=== PATIENT | male | born 1940 | race Caucasian/White ===

== ENCOUNTER 2020-01-12 10:50 | Emergency (ER) | payer MEDICARE, OTHER ==
[2020-01-12] MEDS ORDERED: Sodium Chloride 0.9% 10 ML Syringe FLUSH PRN (10:56)
--- NOTE | 2020-01-12 11:01 | EDM.PDOC ---
ED HPI GENERAL MEDICAL PROBLEM - General Chief Complaint: Syncope Stated Complaint: MEDICAL [facility] Time Seen by Provider: 01/12/20 11:15 Source of Information: Reports: Patient, EMS. Denies: Old Records History Limitations: Reports: Other (minimal old records) - History of Present Illness INITIAL COMMENTS - FREE TEXT/NARRATIVE: 79 yo male presents via EMS for weakness. EMS reported syncope, but Ken denies this. He says he got up about 6 am today and had to go to the bathroom and en route his legs could not support him and he went to the ground without injury. The states that she did not see him unconscious at any point. Eventually EMS was called due to not being able to get him up off the floor. Lives with his in [place] for the past ~10 yrs. Gets his healthcare usually in [facility]. Has chronic back pain that has been worked up and nothing has been done that helps this problem. Has urinary urgency. Denies any recent new pain or illness. Has been eating OK and denies dark urine or black/bloody stool. Onset: Gradual Duration: Chronic, Getting Worse Location: Reports: Lower Extremity, Left, Lower Extremity, Right Quality: Reports: Ache Severity: Moderate (chronic low back pain) Improves with: Reports: Rest Worsens with: Reports: Movement Context: Reports: Other (See HPI) Associated Symptoms: Reports: Weakness (of both legs chronic, worse than usual today.) Treatments [facility]ENHOUSE [facility]: Reports: Other (see below) (none) - Related Data Allergies Allergy/AdvReac Type Severity Reaction Status Date / Time No Known Allergies Allergy Verified 01/12/20 10:53 Home Meds: Home Meds Blood Sugar Diagnostic [[place] CCCtouch Ultra Test Strips] 1 strip ASDIRECTED 09/11/16 [History] Cyanocobalamin (Vitamin B-12) [Vitamin B-12] 1 tab PO DAILY 09/11/16 [History] Ibuprofen 800 mg PO Q6H PRN 09/11/16 [History] Liraglutide [Victoza] 1.2 mg SUBCUT DAILY 09/11/16 [History] Lisinopril 10 mg PO DAILY 09/11/16 [History] Omeprazole 20 mg PO DAILY 09/11/16 [History] Sour [place] Extract [Tart Salmeron Extract] 1 tab PO DAILY 09/11/16 [History] Ubidecarenone [Coq10] 1 tab PO BID 09/11/16 [History] atorvaSTATin [Lipitor] 40 mg PO BEDTIME 09/11/16 [History] glipiZIDE [Glucotrol] 20 mg PO DAILY 09/11/16 [History] metFORMIN [Glucophage] 1,000 mg PO BIDMEALS 09/11/16 [History] Alfuzosin HCl [Alfuzosin HCl ER] 10 mg PO BEDTIME #30 tab.er.24h 01/12/20 [Rx] Empagliflozin [Jardiance] 10 mg PO DAILY 01/12/20 [History] Lidocaine 5% [Lidoderm 5%] 1 patch TOP DAILY #30 patch 01/12/20 [Rx] Past Medical History Musculoskeletal History: Reports: Back Pain, Chronic ED ROS GENERAL - Review of Systems Review Of Systems: See Below Constitutional: Reports: Weakness (worse in the legs?). Denies: Fever, Chills, Malaise, Fatigue, Diaphoresis, Decreased Appetite HEENT: Reports: No Symptoms Respiratory: Reports: No Symptoms Cardiovascular: Reports: No Symptoms Endocrine: Reports: No Symptoms GI/Abdominal: Reports: No Symptoms : Reports: Frequency, Urgency. Denies: Dysuria, Flank Pain, Hematuria Musculoskeletal: Reports: Back Pain (chronic) Skin: Reports: No Symptoms Neurological: Reports: No Symptoms Psychiatric: Reports: No Symptoms - Physical Exam Exam: See Below Exam Limited By: No Limitations General Appearance: Alert, WD/WN, No Apparent Distress, Obese Eye Exam: Bilateral Eye: Normal Inspection Ears: Normal External Exam, Normal Canal, Hearing Grossly Normal, Normal TMs Nose: Normal Inspection, No Blood Throat/Mouth: Normal Inspection, Normal Lips, Normal Oropharynx, Normal Voice, No Airway Compromise Head Exam: Atraumatic, Normocephalic Neck: Normal Inspection Respiratory/Chest: No Respiratory Distress, Lungs Clear, Normal Breath Sounds, No Accessory Muscle Use Cardiovascular: Regular Rate, Rhythm, No Edema, Tachycardia GI/Abdominal: Normal Bowel Sounds, Soft, Non-Tender, No Distention Neuro Exam (Abbreviated): Alert, Oriented, CN II-XII Intact, Normal Cognition, No Motor/Sensory Deficits Back Exam: Normal Inspection. No: CVA Tenderness (R), CVA Tenderness (L) Extremities: Normal Inspection, Normal Range of Motion, Non-Tender. No: No Pedal Edema (trace to both LE's below the knees) Psychiatric: Normal Affect, Normal Mood Skin Exam: Warm, Dry, Intact, Normal Color, No Rash #1 Interpretation EKG Date: 01/12/20 Time: 10:50 Rhythm: Other (? ectopic atrial tachycardia) Rate (Beats/Min): 100 [place]: Normal P-Wave: Variable QRS: LBBB ST-T: Normal QT: Normal Comparison: NA - No Prior EKG Course - Vital Signs Text/Narrative:: Post-void bladder scan 386 ml Last Recorded V/S: Last Vital Signs Temp 35.6 C L 01/12/20 11:05 Pulse 95 01/12/20 11:05 Resp 20 01/12/20 11:05 BP 159/83 H 01/12/20 11:05 Pulse Ox 95 01/12/20 11:05 - Orders/Labs/Meds Orders: Active Orders 24 hr Category Date Time Status Bladder Scan [RC] ASDIRECTED Care 01/12/20 11:18 Active Cardiac Monitoring [RC] .As Directed Care 01/12/20 10:55 Active EKG Documentation Completion [RC] ASDIRECTED Care 01/12/20 10:55 Active Sodium Chloride 0.9% [Saline Flush] Med 01/12/20 10:56 Active 10 ml FLUSH ASDIRECTED PRN Saline Lock Insert [OM.PC] Routine Oth 01/12/20 10:56 Ordered EKG 12 Lead [EK] Routine Ther 01/12/20 10:55 Ordered Medication Orders Sodium Chloride (Saline Flush) 10 ml FLUSH ASDIRECTED PRN PRN Reason: Keep Vein Open Labs: Laboratory Tests 01/12/20 01/12/20 01/12/20 Range/Units 10:55 11:07 11:07 WBC 11.3 H (4.5-11.0) K/uL RBC 5.36 (4.30-5.90) M/uL Hgb 14.0 (12.0-15.0) g/dL Hct 44.9 (40.0-54.0) % MCV 84 (80-98) fL MCH 26 L (27-31) pg MCHC 31 L (32-36) % Plt Count 199 (150-400) K/uL Sodium 139 L (140-148) mmol/L Potassium 4.6 (3.6-5.2) mmol/L Chloride 104 (100-108) mmol/L Carbon Dioxide 25 (21-32) mmol/L Anion Gap 14.6 H (5.0-14.0) mmol/L BUN 36 H (7-18) mg/dL Creatinine 1.3 (0.8-1.3) mg/dL Est Cr Clr Drug Dosing 46.83 mL/min Estimated GFR (MDRD) 53 L (>60) Glucose 185 H (74-106) mg/dL Calcium 9.5 (8.5-10.1) mg/dL Creatine Kinase (39-308) U/L Troponin I < 0.017 (0.000-0.056) ng/mL NT-Pro-B Natriuret Pep (5-450) pg/mL Urine Color Yellow (YELLOW) Urine Appearance Clear (CLEAR) Urine pH 5.0 (5.0-8.0) Ur Specific [place] 1.020 (1.008-1.030) Urine Protein 30 H (NEGATIVE) mg/dL Urine Glucose (UA) 500 H (NEGATIVE) mg/dL Urine Ketones Negative (NEGATIVE) mg/dL Urine Occult Blood Trace-lysed H (NEGATIVE) Urine Nitrite Negative (NEGATIVE) Urine Bilirubin Negative (NEGATIVE) Urine Urobilinogen 0.2 (0.2-1.0) EU/dL Ur Leukocyte Esterase Negative (NEGATIVE) Urine RBC 0-5 (0-5) Urine WBC Not seen (0-5) Ur Epithelial Cells Not seen Amorphous Sediment Rare Urine Bacteria Rare Urine Mucus Rare Urinalysis Comment SARS-CoV-2 RNA (RUBEN) (NEGATIVE) 01/12/20 01/12/20 Range/Units 11:07 12:18 WBC (4.5-11.0) K/uL RBC (4.30-5.90) M/uL Hgb (12.0-15.0) g/dL Hct (40.0-54.0) % MCV (80-98) fL MCH (27-31) pg MCHC (32-36) % Plt Count (150-400) K/uL Sodium (140-148) mmol/L Potassium (3.6-5.2) mmol/L Chloride (100-108) mmol/L Carbon Dioxide (21-32) mmol/L Anion Gap (5.0-14.0) mmol/L BUN (7-18) mg/dL Creatinine (0.8-1.3) mg/dL Est Cr Clr Drug Dosing mL/min Estimated GFR (MDRD) (>60) Glucose (74-106) mg/dL Calcium (8.5-10.1) mg/dL Creatine Kinase 89 (39-308) U/L Troponin I (0.000-0.056) ng/mL NT-Pro-B Natriuret Pep 257 (5-450) pg/mL Urine Color (YELLOW) Urine Appearance (CLEAR) Urine pH (5.0-8.0) Ur Specific [place] (1.008-1.030) Urine Protein (NEGATIVE) mg/dL Urine Glucose (UA) (NEGATIVE) mg/dL Urine Ketones (NEGATIVE) mg/dL Urine Occult Blood (NEGATIVE) Urine Nitrite (NEGATIVE) Urine Bilirubin (NEGATIVE) Urine Urobilinogen (0.2-1.0) EU/dL Ur Leukocyte Esterase (NEGATIVE) Urine RBC (0-5) Urine WBC (0-5) Ur Epithelial Cells Amorphous Sediment Urine Bacteria Urine Mucus Urinalysis Comment SARS-CoV-2 RNA (RUBEN) Negative (NEGATIVE) Meds: Medications Generic Name Dose Route Start Last Admin Trade Name Freq PRN Reason Stop Dose Admin Sodium Chloride 10 ml 01/12/20 10:56 Saline Flush FLUSH ASDIRECTED PRN Keep Vein Open Discontinued Medications Generic Name Dose Route Start Last Admin Trade Name Freq PRN Reason Stop Dose Admin Acetaminophen 1,000 mg 01/12/20 13:37 01/12/20 13:49 Tylenol Extra Strength PO 01/12/20 13:38 1,000 mg ONETIME ONE Administration Sodium Chloride 1,000 mls @ 999 mls/hr 01/12/20 11:42 01/12/20 13:12 Normal Saline IV 01/12/20 12:42 999 mls/hr .BOLUS ONE Administration Lidocaine 700 mg 01/12/20 13:37 01/12/20 13:49 Lidoderm 5% TOP 01/12/20 13:38 700 mg ONETIME ONE Administration Tamsulosin HCl 0.4 mg 01/12/20 11:47 01/12/20 13:12 Flomax PO 01/12/20 11:48 0.4 mg ONETIME ONE Administration - Re-Assessments/Exams Free Text/Narrative Re-Assessment/Exam: 01/12/20 15:03 After treatment he was able to walk in the halls with a walker safely, has a walker at home. Departure - Departure Time of Disposition: 15:04 Disposition: Home, Self-Care 01 Condition: Fair Clinical Impression: Weakness Chronic low back pain Qualifiers: Back pain laterality: unspecified Sciatica presence: without sciatica Qualified Code(s): M54.5 - Low back pain; G89.29 - Other chronic pain - Discharge Information *PRESCRIPTION DRUG MONITORING PROGRAM REVIEWED*: No *COPY OF PRESCRIPTION DRUG MONITORING REPORT IN PATIENT PEDRO: No Instructions: Chronic Back Pain Referrals: PCP,None [Primary Care Provider] - Forms: ED Department Discharge Additional Instructions: Take acetaminophen up to 1000 mg every 6 hrs for back pain. Add a lidocaine patch as directed. You may use ibuprofen, but its probably not safe for you to take more than 400 mg every 6 hrs with food. Take the afulzocin for your prostate gland. See your doctor for recheck soon. Use your walker when walking to reduce your risk of falling. Sepsis Event Note (ED) - Focused Exam Vital Signs: Vital Signs Temp Pulse Resp BP Pulse Ox 01/12/20 11:05 35.6 C L 95 20 159/83 H 95 - My Orders Last 24 Hours: My Active Orders 01/12/20 10:55 Cardiac Monitoring [RC] .As Directed EKG Documentation Completion [RC] ASDIRECTED EKG 12 Lead [EK] Routine 01/12/20 10:56 Sodium Chloride 0.9% [Saline Flush] 10 ml FLUSH ASDIRECTED PRN Saline Lock Insert [OM.PC] Routine 01/12/20 11:18 Bladder Scan [RC] ASDIRECTED - Assessment/Plan Last 24 Hours: My Active Orders 01/12/20 10:55 Cardiac Monitoring [RC] .As Directed EKG Documentation Completion [RC] ASDIRECTED EKG 12 Lead [EK] Routine 01/12/20 10:56 Sodium Chloride 0.9% [Saline Flush] 10 ml FLUSH ASDIRECTED PRN Saline Lock Insert [OM.PC] Routine 01/12/20 11:18 Bladder Scan [RC] ASDIRECTED
[2020-01-12 11:06] VITALS: BP 159/83; PULSE 95
[2020-01-12] MEDS ORDERED: Sodium Chloride 0.9% 1,000 ML IV ONE (11:42)
[2020-01-12] MEDS ORDERED: Tamsulosin 0.4 MG Cap.ER PO ONE (11:47)
[2020-01-12] MEDS ORDERED: Lidocaine 5% 700 MG Patch TOP ONE (13:37)
[2020-01-12] MEDS ORDERED: Acetaminophen 500 MG Tab PO ONE (13:37)
== END 2020-01-12 15:23 | disposition home or self-care (01) ==
LOC: JP.ED 10:50
DX: R53.1 Weakness (principal); M54.5 Low back pain; Z79.84 Long term (current) use of oral hypoglycemic drugs; Z79.899 Other long term (current) drug therapy; Z20.828 Contact with and (suspected) exposure to other viral communicable diseases
CPT/HCPCS: 36415; 51798; 80048; 81001; 82550; 83880; 84484; 85027; 93005; 93010; 99283; 99285-25; A9270-GY; J7030; U0002